=== PATIENT | male | born 1965 | race African-American/Black ===

== ENCOUNTER → 2020-11-19 03:39 | Outpatient (CLI) | payer BC, SELFPAY ==
[2020-11-19 18:47] LABS: SARS-CoV-2 RNA PCR Negative
== END ==
PROVIDERS: PCP Family Medicine; Visit Provider Internal Medicine Gastroenterology
DX: Z01.812 Encounter for preprocedural laboratory examination (principal); Z20.822 Contact with and (suspected) exposure to COVID-19
CPT/HCPCS: C9803; U0003; U0005

== ENCOUNTER 2020-11-22 01:00 | Day surgery (SDC) | payer BC, SELFPAY ==
[2020-11-09 09:22] VITALS: BMI 37.8
[2020-11-22 08:26] VITALS: BP 165/87; PULSE 89; RESP 20; TEMP 36.2; O2SAT 100
[2020-11-22] MEDS: LACTATED RINGERS 1,000 ML 150 ML IV CONT (08:31)
--- NOTE | 2020-11-22 09:20 | WPDGICN ---
Assessment and Plan Assessment and plan (1) Family history of colon cancer in mother: Code(s): Z80.0 - Family history of malignant neoplasm of digestive organs Status: Acute Assessment and Plan: Patient reports that his mother had colon cancer. Plan is for surveillance colonoscopy now and consider this in 5 years. GI Consult Note Consult date/time: 11/22/20 09:20 HPI: Jack Núñez is a 55 year old male Presents for colonoscopy. Patient's family history is significant his mother had colon cancer. Patient states that his current weight appetite and bowel movements are normal. Patient denies abdominal pain. He has had no bleeding period is been 10 years since last colonoscopy. Review of Systems Review of Systems: All systems reviewed & are unremarkable except as noted in HPI and below PMFSH Past Medical History Medical History (Updated 11/22/20 @ 09:22 by Rojelio Dias MD) HLD (hyperlipidemia) Hypertension Normal colonoscopy (~2010) Pre-diabetes Family History Family History Mother Carcinoma of colon Father Patient's father is in good health Social History Social History Smoking status: Never smoker Second hand tobacco smoke exposure: No Alcohol intake: current Drinks per week: 3 Substance use: never Substance use type: does not use Spiritual care concerns: No Meds Home Medications and Allergies Home Medications Medication Instructions Recorded Confirmed Type amlodipine 5 mg tablet 5 mg PO DAILY #90 tablet 10/04/20 11/09/20 Rx Allergies Allergy/AdvReac Type Severity Reaction Status Date / Time No Known Allergies Allergy Mild Verified 11/22/20 08:24 Vital Signs Vital Signs - 24 hr 11/22/20 08:26 Temperature 97.1 F L Pulse Rate 89 Respiratory Rate 20 Blood Pressure 165/87 H Pulse Oximetry 100 Exam Narrative: Exam Narrative: Physical exam reveals patient to be alert. Vital signs stable. HEENT exam is unremarkable. Patient is anicteric. Lungs are clear to auscultation and percussion. Heart is without murmur or extra sounds. Abdominal exam bowel sounds are present soft nontender with no organomegaly. Digital external rectal exam is normal.
--- NOTE | 2020-11-22 09:36 | WPDANESEPPF ---
Anes - Initial Pre Proc Eval Procedure: Operation Date: 11/22/20 09:30 Proposed Procedures p Screening Colonoscopy - Rojelio Dias MD Date/Time: 11/22/20 09:36 Surgeon: Rojelio Dias MD Pre Op Diagnosis: family hx of colon ca, neoplasm screening Patient Data Age: 55 Gender: M Height: 1.8 m Weight: 140.3 kg Last Vital Signs Temp 97.1 F L 11/22/20 08:26 Pulse 89 11/22/20 08:26 Resp 20 11/22/20 08:26 BP 165/87 H 11/22/20 08:26 Pulse Ox 100 11/22/20 08:26 Allergies Allergy/AdvReac Type Severity Reaction Status Date / Time No Known Allergies Allergy Mild Verified 11/22/20 08:24 Home Medications Medication Instructions Recorded Confirmed Type amlodipine 5 mg tablet 5 mg PO DAILY #90 tablet 10/04/20 11/09/20 Rx Patient hx anesthesia problems: none Family hx [facility] problems: [facility] Past Medical History Medical History (Updated 11/22/20 @ 09:22 by Rojelio Dias MD) HLD (hyperlipidemia) Hypertension Normal colonoscopy (~2010) Pre-diabetes Family History Family History Mother Carcinoma of colon Father Patient's father is in good health Social History Social History Smoking status: Never smoker Second hand tobacco smoke exposure: No Alcohol intake: current Drinks per week: 3 Substance use: never Substance use type: does not use Spiritual care concerns: No Anes - Eval Final PreProcedure Day of Procedure 11/22/20 09:36 Patient weight: morbidly obese Heart: regular rate and rhythm Lungs: clear to auscultation Airway: Mallampati scale class II Neurological: alert and oriented Last oral intake: >/= 8 hours ASA classification: III Emergent: no Anesthetic plan: proceed Anesthesia type and monitoring: general GIVS and standard monitoring Informed Consent: The patient's anesthetic plan and its attendant risks and benefits were discussed with the patient/family/POA. Questions were solicited and answers provided to the satisfaction of the patient/family/POA.
[2020-11-22 10:21] VITALS: BP 142/69; PULSE 72; RESP 26; O2SAT 94
[2020-11-22 10:31] VITALS: BP 143/62; PULSE 69; RESP 22; O2SAT 94
[2020-11-22 10:41] VITALS: BP 155/90; PULSE 64; RESP 18; O2SAT 97
== END 2020-11-22 10:55 | disposition home or self-care (01) ==
PROVIDERS: PCP Family Medicine; Visit Provider Internal Medicine Gastroenterology
PROC: 0DJD8ZZ Inspection of Lower Intestinal Tract, Via Natural or Artificial Opening Endoscopic (ICD-10-PCS; CPT 45378; principal; 2020-11-22 09:30)
DX: Z12.11 Encounter for screening for malignant neoplasm of colon (principal); K64.0 First degree hemorrhoids; K57.30 Diverticulosis of large intestine without perforation or abscess without bleeding; Z80.0 Family history of malignant neoplasm of digestive organs; E78.5 Hyperlipidemia, unspecified; I10 Essential (primary) hypertension; R73.03 Prediabetes; E66.01 Morbid (severe) obesity due to excess calories; Z68.41 Body mass index [BMI] 40.0-44.9, adult
CPT/HCPCS: 45378; J2704; J7120